=== PATIENT | female | born 1950 | race Caucasian/White ===

== ENCOUNTER → 2021-02-01 | Outpatient (CLI) | payer MEDICARE ==
[~2021-02-01] MED LIST: ALBUTEROL1.25 MG/3 INH; ANORO ELLIPTA1 EACH INH; ASPIRIN EC81 MG PO; ASPIRIN325 MG PO; CYCLOBENZAPRINE10 MG PO; DITROPAN 5 MG TA5 MG PO; FUROSEMIDE40 MG PO; HYDROXYZINE HCL10 MG PO; K-DUR TAB 20 M20 MEQ PO; LEVAQUIN500 MG PO; LORAZEPAM0.5 MG PO; MELOXICAM15 MG PO; MELOXICAM7.5 MG PO; MIRAPEX0.5 MG PO; MULTI-VITAMIN1 EACH PO; NORCO 5-325 TA1 EACH PO; SERTRALINE HCL100 MG PO; VITAMIN B-1000 MCG/M IM
== END ==
LOC: MAMO 15:00
DX: Z12.31 Encounter for screening mammogram for malignant neoplasm of breast (principal)
CPT/HCPCS: 77063; 77067

== ENCOUNTER → 2021-10-07 | Outpatient (CLI) | payer MEDICARE ==
[~2021-10-07] MED LIST changes: +CLARITIN10 M2 PO; +ENDOCET 5-3251 EACH PO; -MELOXICAM15 MG PO; +NITROGLYCERIN
[2021-10-07 11:58] LABS: HEMOGLOBIN 12.1 gm/dl (12.3-15.3); RED BLOOD COUNT 4.02 M/UL (4.00-5.10); WHITE BLOOD COUNT 5.7 K/UL (4.5-11.0)
[2021-10-07 12:18] LABS: BUN/CREATININE RATIO 23 (0-10)
== END ==
LOC: OPSV2 10:56
PROVIDERS: Orthopaedic Surgery
DX: Z20.822 Contact with and (suspected) exposure to COVID-19 (principal)
CPT/HCPCS: 71046; 80048; 85027; 93005; U0003

== ENCOUNTER → 2021-10-11 | Day surgery (SDC) | payer MEDICARE ==
[~2021-10-11] VITALS: Ht 170.2 cm; Wt 72.1 kg
== END | disposition home or self-care (01) ==
LOC: OR 05:23
DX: S52.552A Other extraarticular fracture of lower end of left radius, initial encounter for closed fracture (principal); S52.612A Displaced fracture of left ulna styloid process, initial encounter for closed fracture; J44.9 Chronic obstructive pulmonary disease, unspecified; F40.240 Claustrophobia; I49.3 Ventricular premature depolarization; I10 Essential (primary) hypertension; Z96.652 Presence of left artificial knee joint; Z98.51 Tubal ligation status; Z79.82 Long term (current) use of aspirin; Z20.822 Contact with and (suspected) exposure to COVID-19; Z87.891 Personal history of nicotine dependence; W18.30XA Fall on same level, unspecified, initial encounter
CPT/HCPCS: 73110; 76000; C1713; J0690; J1100; J2250; J2704; J2795; J3010; J7120

== ENCOUNTER → 2022-03-22 | Outpatient (CLI) | payer MEDICARE | LOC: US 03-20 13:00 | DX: M79.662 Pain in left lower leg (principal); M79.89 Other specified soft tissue disorders; R59.0 Localized enlarged lymph nodes | CPT/HCPCS: 93971 ==